=== PATIENT | female | born 1995 | race Caucasian/White ===

== ENCOUNTER 2021-09-29 11:00 | Emergency (ER) | payer BC ==
[2021-09-29] MEDS ORDERED: Zofran 4 MG/2 ML VIAL IV STA (11:36)
[2021-09-29] MEDS ORDERED: Sodium Chloride 0.9% 1000 ML 1,000 ML IV STA ×2 (11:36→13:34)
[2021-09-29] MEDS ORDERED: MOTRIN 600 MG PO STA (11:36)
--- NOTE | 2021-09-29 11:36 | ERPHSYRPT ---
- History of Present Illness Time Seen by Provider: 09/29/21 11:25 Source: patient Exam Limitations: no limitations Patient Subjective Stated Complaint: pt here for fever since last night,aches, chills and headache. Triage Nursing Assessment: pt alert,moaning and crying at times, skin w/d/p, face mask in place, resp easy, no edema noted Physician History: This is a 25-year-old obese white female who is a patient of Dr. Rust and has flulike symptoms including headache, myalgias, arthralgias, fever chills and cough. She has had no vomiting or diarrhea. She took Tylenol 650 mg 3 hours prior to arrival. There is no other individuals that she knows of with similar symptoms or with diagnoses of COVID-19 infection. Patient denies chest pain. She is not short of breath. Her symptoms started last night Timing/Duration: yesterday Cough Quality/Degree: mild, dry cough Possible Cause: no prior episodes Modifying Factors: Improves With: coughing Associated Symptoms: fever, chills, cough, muscle aches, No chest pain/soreness, No shortness of breath, No sore throat, No wheezing Allergies/Adverse Reactions: No Known Drug Allergies Allergy (Unverified 09/29/21 11:21) Hx Tetanus, Diphtheria Vaccination/Date Given: No Hx Influenza Vaccination/Date Given: No Hx Pneumococcal Vaccination/Date Given: No Immunizations Up to Date: Yes Travel Risk - International Travel Have you traveled outside of the country in past 3 weeks: No - Coronavirus Screening Are you exhibiting any of the following symptoms?: Yes Symptoms: Fever, Headaches/Body Aches/Fatigue - Vaccine Status Have you recieved a Covid-19 vaccination: Yes 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: [employer] - Vaccination Dates Date of 2cond Vaccination (if applicable): 2020 - Review of Systems Constitutional: Fever, Chills, Weakness Eyes: No Symptoms Ears, Nose, & Throat: No Symptoms Respiratory: Cough Cardiac: No Symptoms Abdominal/Gastrointestinal: No Symptoms Genitourinary Symptoms: No Symptoms Musculoskeletal: Arthralgias, Myalgias Skin: No Symptoms Neurological: No Symptoms Psychological: No Symptoms Endocrine: No Symptoms Hematologic/Lymphatic: No Symptoms Immunological/Allergic: No Symptoms All Other Systems: Reviewed and Negative - Past Medical History Pertinent Past Medical History: Yes Psycho-Social History: Depression - Past Surgical History Past Surgical History: No - Social History Smoking Status: Current every day smoker Exposure to second hand smoke: Yes Drug Use: marijuana Patient Lives Alone: No - Female History Hx Last Menstrual Period: 2 weeks ago Hx Now: No - Nursing Vital Signs Nursing Vital Signs: Initial Vital Signs Temperature 100.5 F 09/29/21 11:13 Pulse Rate 106 H 09/29/21 11:13 Respiratory Rate 20 09/29/21 11:13 Blood Pressure 148/72 09/29/21 11:13 O2 Sat by Pulse Oximetry 97 09/29/21 11:13 Pain Scale Pain Intensity 6 - Physical Exam General Appearance: mild distress, alert, anxiety, obese Eye Exam: PERRL/EOMI, eyes nml inspection Ears, Nose, Throat Exam: normal ENT inspection, moist mucous membranes Neck Exam: normal inspection, non-tender, supple, full range of motion Respiratory Exam: chest tenderness, airway intact, rhonchi, No respiratory distress Cardiovascular Exam: tachycardia Gastrointestinal/Abdomen Exam: soft, normal bowel sounds, No tenderness Pelvic Exam: not done Rectal Exam: not done Back Exam: normal inspection, normal range of motion, No CVA tenderness, No vertebral tenderness Extremity Exam: normal inspection, normal range of motion, pelvis stable Neurologic Exam: alert, oriented x 3, cooperative, 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, normal mood/affect, nml cerebellar function, nml station & gait, sensation nml Skin Exam: normal color, warm, dry Lymphatic Exam: No adenopathy SpO2 Interpretation: normal SpO2: 96 - Course Nursing assessment & vital signs reviewed: Yes EKG Interpreted by Me: RATE ([id number]), Sinus Tach, NORMAL AXIS, NORMAL INTERVALS, NORMAL QRS, NORMAL ST-T, Other (No acute ischemic changes on today's EKG) Ordered Tests: Active Orders 24 hr Category Date Time Status [facility] Skin Diver STAT Care 09/29/21 11:36 Active EKG-ER Only STAT Care 09/29/21 11:36 Active IV Insertion STAT Care 09/29/21 11:36 Active Pulse Oximetry (ED) STAT Care 09/29/21 11:36 Active CHEST 1 VIEW (PORTABLE) Stat Exams 09/29/21 11:36 Completed BLOOD CULTURE Stat Lab 09/29/21 11:55 Received CBC W DIFF Stat Lab 09/29/21 11:36 Completed CMP Stat Lab 09/29/21 11:25 Completed Lactic Acid Stat Lab 09/29/21 11:36 Completed [place] Screen Stat Lab 09/29/21 11:25 Completed UA W/RFX CULTURE Stat Lab 09/29/21 Ordered Medication Summary Discontinued Medications Generic Name Dose Route Start Last Admin Trade Name Nick PRN Reason Stop Dose Admin Hydrocodone Bitart/Acetaminophen 10 ml 09/29/21 11:37 09/29/21 11:50 Hydrocodone/Acetaminophen 5 Ml Udcup PO 09/29/21 11:38 10 ml STAT STA Administration Hydrocodone Bitart/Acetaminophen Confirm 09/29/21 11:43 Hydrocodone/Acetaminophen 5 Ml Udcup Administered 09/29/21 11:44 Dose 10 ml .ROUTE .STK-MED ONE Methylprednisolone Sodium 0 mg 09/29/21 11:37 09/29/21 11:52 Succinate 125 mg/ Sterile IV 09/29/21 11:38 125 mg Water 2 ml STAT ONE Administration Sodium Chloride 1,000 mls @ 999 mls/hr 09/29/21 11:36 09/29/21 13:01 Sodium Chloride 0.9% 1000 Ml IV 09/29/21 12:36 Infused .Q1H1M STA Infusion Sodium Chloride Confirm 09/29/21 11:43 Sodium Chloride 0.9% 1000 Ml Administered 09/29/21 11:44 Dose 1,000 mls @ ud .ROUTE .STK-MED ONE Ceftriaxone Sodium/Dextrose 1 g in 50 mls @ 100 mls/hr 09/29/21 12:40 09/29/21 12:52 Rocephin 1 Gm-D5w 50 Ml Bag IV 09/29/21 13:09 100 ml/hr STAT STA 100 mls/hr Administration Ceftriaxone Sodium/Dextrose Confirm 09/29/21 12:45 Rocephin 1 Gm-D5w 50 Ml Bag Administered 09/29/21 12:46 Dose 1 g in 50 mls @ ud IV .STK-MED ONE Ibuprofen 600 mg 09/29/21 11:36 09/29/21 11:47 Ibuprofen 600 Mg Tablet PO 09/29/21 11:37 600 mg STAT STA Administration Ibuprofen Confirm 09/29/21 11:43 Ibuprofen 600 Mg Tablet Administered 09/29/21 11:44 Dose 600 mg .ROUTE .STK-MED ONE Methylprednisolone Sodium Succinate Confirm 09/29/21 11:43 Methylprednis Sod Succ 125 Mg/2 Ml Vial Administered 09/29/21 11:44 Dose 125 mg .ROUTE .STK-MED ONE Ondansetron HCl 4 mg 09/29/21 11:36 09/29/21 11:53 Ondansetron Hcl 4 Mg/2 Ml Vial IV 09/29/21 11:37 4 mg STAT STA Administration Ondansetron HCl Confirm 09/29/21 11:42 Ondansetron Hcl 4 Mg/2 Ml Vial Administered 09/29/21 11:43 Dose 4 mg .ROUTE .[employer] ONE Sterile Water Confirm 09/29/21 11:42 Water For Injection,Sterile 10 Ml Vial Administered 09/29/21 11:43 Dose 10 ml IJ .[employer] ONE Lab/Rad Data: Laboratory Result Diagrams 09/29/21 11:36 09/29/21 11:25 Laboratory Results 09/29/21 09/29/21 09/29/21 Range/Units 11:55 11:55 11:36 WBC (4.0-10.5) x10^3/uL RBC (4.1-5.4) x10^6/uL Hgb (12.0-16.0) g/dL Hct (35-47) % MCV (78-100) fL MCH (26-32) pg MCHC (32-36) g/dL RDW (11.5-14.0) % Plt Count (150-450) x10^3/uL MPV (7.5-11.0) fL Gran % (36.0-66.0) % Immature Gran % (Auto) (0.00-0.4) % Nucleat RBC Rel Count (0.00-0.1) % Eos # (Auto) (0-0.5) x10^3/uL Immature Gran # (Auto) (0.00-0.03) x10^3u/L Absolute Lymphs (auto) (1.0-4.6) x10^3/uL Absolute Monos (auto) (0.0-1.3) x10^3/uL Absolute Nucleated RBC (0.00-0.01) x10^3u/L Lymphocytes % (24.0-44.0) % Monocytes % (0.0-12.0) % Eosinophils % (0.00-5.0) % Basophils % (0.0-0.4) % Absolute Granulocytes (1.4-6.9) x10^3/uL Basophils # (0-0.4) x10^3/uL Sodium (137-145) mmol/L Potassium (3.5-5.1) mmol/L Chloride (98-107) mmol/L Carbon Dioxide (22-30) mmol/L Anion Gap (5-15) MEQ/L BUN (7-17) mg/dL Creatinine (0.52-1.04) mg/dL Estimated GFR ML/MIN Glucose (74-106) mg/dL Lactic Acid 1.1 (0.4-2.0) Calcium (8.4-10.2) mg/dL Total Bilirubin (0.2-1.3) mg/dL AST (14-36) U/L ALT (0-35) U/L Alkaline Phosphatase (38-126) U/L Serum Total Protein (6.3-8.2) g/dL Albumin (3.5-5.0) g/dL Monoscreen (Negative) Influenza Type A Ag NEGATIVE (NEGATIVE) Influenza Type B Ag NEGATIVE (NEGATIVE) RSV (PCR) NEGATIVE (Negative) SARS-CoV-2 (PCR) POSITIVE A (NEGATIVE) Group A Strep Antibody NOT DETECTED (NEGATIVE) 09/29/21 09/29/21 09/29/21 Range/Units 11:36 11:25 11:25 WBC 6.0 (4.0-10.5) x10^3/uL RBC 3.98 L (4.1-5.4) x10^6/uL Hgb 11.2 L (12.0-16.0) g/dL Hct 35.1 (35-47) % MCV 88.2 (78-100) fL MCH 28.1 (26-32) pg MCHC 31.9 L (32-36) g/dL RDW 16.5 H (11.5-14.0) % Plt Count 177 (150-450) x10^3/uL MPV 10.9 (7.5-11.0) fL Gran % 90.0 H (36.0-66.0) % Immature Gran % (Auto) 0.7 H (0.00-0.4) % Nucleat RBC Rel Count 0.0 (0.00-0.1) % Eos # (Auto) 0.06 (0-0.5) x10^3/uL Immature Gran # (Auto) 0.04 H (0.00-0.03) x10^3u/L Absolute Lymphs (auto) 0.17 L (1.0-4.6) x10^3/uL Absolute Monos (auto) 0.31 (0.0-1.3) x10^3/uL Absolute Nucleated RBC 0.00 (0.00-0.01) x10^3u/L Lymphocytes % 2.8 L (24.0-44.0) % Monocytes % 5.2 (0.0-12.0) % Eosinophils % 1.0 (0.00-5.0) % Basophils % 0.3 (0.0-0.4) % Absolute Granulocytes 5.38 (1.4-6.9) x10^3/uL Basophils # 0.02 (0-0.4) x10^3/uL Sodium 137 (137-145) mmol/L Potassium 3.7 (3.5-5.1) mmol/L Chloride 107 (98-107) mmol/L Carbon Dioxide 22 (22-30) mmol/L Anion Gap 11.6 (5-15) MEQ/L BUN 5 L (7-17) mg/dL Creatinine 0.73 (0.52-1.04) mg/dL Estimated GFR > 60.0 ML/MIN Glucose 96 (74-106) mg/dL Lactic Acid (0.4-2.0) Calcium 8.4 (8.4-10.2) mg/dL Total Bilirubin 0.30 (0.2-1.3) mg/dL AST 21 (14-36) U/L ALT 18 (0-35) U/L Alkaline Phosphatase 62 (38-126) U/L Serum Total Protein 6.7 (6.3-8.2) g/dL Albumin 3.9 (3.5-5.0) g/dL Monoscreen NEGATIVE (Negative) Influenza Type A Ag (NEGATIVE) Influenza Type B Ag (NEGATIVE) RSV (PCR) (Negative) SARS-CoV-2 (PCR) (NEGATIVE) Group A Strep Antibody (NEGATIVE) - Progress Progress: improved, re-examined Air Movement: fair Progress Note: 09/29/21 12:40 Chest x-ray shows right infrahilar airspace disease 09/29/21 13:20 Patient states that she is feeling much better. Blood Culture(s) Obtained: Yes Antibiotics given: Yes Counseled pt/family regarding: lab results, diagnosis, rad results - Departure Departure Disposition: Home Clinical Impression: COVID-19 virus infection, Pulmonary infiltrate in right lung on CXR Condition: Stable Critical Care Time: No Referrals: DANIELLE RUST [ACTIVE STAFF] - Follow up/PCP as directed Additional Instructions: Drink plenty of fluids. Take your medication as prescribed. Quarantine yourself per your employer's protocol. Prescriptions: Hydrocodone/Acetaminophen [Hydrocodone-Acetamn 7.5-325/15] 10 ml PO Q8H PRN PRN #120 ml MDD 30 ml PRN Reason: Cough Prednisone 10 mg [Deltasone 10 mg] 10 mg PO TID #12 tablet Azithromycin 250 mg [Zithromax 250 MG TABLET] 250 mg PO ZPACK #6 tablet
[2021-09-29] MEDS ORDERED: HYDROCODONE-ACETAMIN 2.5-108/5 ML SOLUTION PO STA (11:37)
[2021-09-29] MEDS ORDERED: solu-MEDROL 125 MG, Sterile H2O 10 ml 2 ML IV ONE ×2 (11:37)
[2021-09-29] MEDS ORDERED: Sterile H2O 10 ml IJ ONE (11:42)
[2021-09-29] MEDS ORDERED: Zofran 4 MG/2 ML VIAL ONE (11:42)
[2021-09-29] MEDS ORDERED: solu-MEDROL ONE (11:43)
[2021-09-29] MEDS ORDERED: Sodium Chloride 0.9% 1000 ML 1,000 ML ONE ×2 (11:43→13:35)
[2021-09-29] MEDS ORDERED: MOTRIN 600 MG ONE (11:43)
[2021-09-29] MEDS ORDERED: HYDROCODONE-ACETAMIN 2.5-108/5 ML SOLUTION ONE (11:43)
[2021-09-29 11:48] LABS: Absolute Neutrophil Ct (ANC) 5.38 x10^3/uL (1.4-6.9); Basophil (Absolute #) 0.02 x10^3/uL (0-0.4); Eosinophil (Absolute #) 0.06 x10^3/uL (0-0.5); Hematocrit 35.1 % (35-47); Hemoglobin 11.2 g/dL (12.0-16.0); Lymphocyte (Absolute #) 0.17 x10^3/uL (1.0-4.6); Lymphocytes % 2.8 % (24.0-44.0); Mean Cell Volume 88.2 fL (78-100); Mean Corpuscular Hemoglobin 28.1 pg (26-32); Mean Corpuscular Hgb Concent. 31.9 g/dL (32-36); Mean Platelet Volume 10.9 fL (7.5-11.0); Monocyte (Absolute #) 0.31 x10^3/uL (0.0-1.3); Monocytes % 5.2 % (0.0-12.0); Platelet Count 177 x10^3/uL (150-450); Red Blood Count 3.98 x10^6/uL (4.1-5.4); Red Cell Distribution Width 16.5 % (11.5-14.0)
[2021-09-29 12:01] LABS: ALBUMIN 3.9 g/dL (3.5-5.0); ALKALINE PHOSPHATASE 62 U/L (38-126); ANION GAP 11.6 MEQ/L (5-15); BLOOD UREA NITROGEN 5 mg/dL (7-17); CHLORIDE 107 mmol/L (98-107); Calcium 8.4 mg/dL (8.4-10.2); Carbon Dioxide 22 mmol/L (22-30); Creatinine 1 0.73 mg/dL (0.52-1.04); EST GLOMERULAR FILTRATION RATE > 60.0 ML/MIN; Glucose 96 mg/dL (74-106); Potassium 3.7 mmol/L (3.5-5.1); SGOT/AST 21 U/L (14-36); SGPT/ALT 18 U/L (0-35); SODIUM 137 mmol/L (137-145); Total Protein 6.7 g/dL (6.3-8.2)
--- NOTE | 2021-09-29 12:15 | XRAY ---
Indication: Fever and cough. Comparison: None Portable chest demonstrates hazy right infrahilar airspace disease. Remaining heart, left lung, and bony thorax normal.
[2021-09-29] MEDS ORDERED: ROCEPHIN 1 Gm-D5w 50 ml Bag** 1 G/50 ML IVPB IV STA (12:40)
[2021-09-29 12:41] LABS: INFLUENZA A NEGATIVE (NEGATIVE); INFLUENZA B NEGATIVE (NEGATIVE); RESPIRATORY SYNCTIAL VIRUS NEGATIVE (Negative)
[2021-09-29 12:45] LABS: SARS-CoV-2 Xpert Express POSITIVE (NEGATIVE)
[2021-09-29] MEDS ORDERED: ROCEPHIN 1 Gm-D5w 50 ml Bag** 1 G/50 ML IVPB IV ONE (12:45)
[2021-09-29 13:02] VITALS: BP 105/59
[2021-09-29] MEDS ORDERED: Sodium Chloride 0.9% 500 ML 500 ML IV ONE (13:19)
[2021-09-29 14:01] VITALS: PULSE 85; O2SAT 95
== END 2021-09-29 14:04 | disposition home or self-care (01) ==
LOC: ED 11:00
DX: U07.1 COVID-19 (principal); R91.8 Other nonspecific abnormal finding of lung field; R51.9 Headache, unspecified; M79.10 Myalgia, unspecified site; R50.9 Fever, unspecified; R05.9 Cough, unspecified; Z72.0 Tobacco use; Z79.891 Long term (current) use of opiate analgesic; Z79.52 Long term (current) use of systemic steroids
CPT/HCPCS: 0241U; 36000; 36415; 71045; 80053; 83605; 85025; 86308; 87040; 87651; 93005; 93041; 94760; 96360; 96361; 96365; 96374; 96375; 99284; J0696; J2405; J2930; A9270-GY